=== PATIENT | male | born 1985 | race American Indian/Alaskan Native ===

== ENCOUNTER 2019-05-27 23:37 | Emergency (ER) | payer SELFPAY ==
[2019-05-27 23:53] VITALS: BP 115/78
[2019-05-28] MEDS ORDERED: ULTRAM PO ONE (01:06)
--- NOTE | 2019-05-28 01:19 | Emergency Department Report ---
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 Presents for persistent pain 02/21 since incident. Pt pain making it difficult to walk. There is no swelling , mild bruising no deformity. Pt ambulated into ed with gait disturbance. MD Complaint: leg injury Onset/Timin -: days(s) Injury: Leg: Right (right proxima tib /fib pain) Type of Injury: blunt Place: work Severity: moderate Severity scale (0 -10): 7 Improves With: nothing Worsens With: weight bearing, movement, palpation Context: direct blow Associated Symptoms: ambulatory - Related Data Previous Rx's Medication Instructions Recorded Last Taken Type Menthol/Camphor [[place] 1 applicatio TP QID PRN #1 tube 05/28/19 Unknown Rx Ointment] Naproxen 500 mg PO BID PRN #30 tablet 05/28/19 Unknown Rx Allergies Allergy/AdvReac Type Severity Reaction Status Date / Time No Known Allergies Allergy Verified 05/27/19 23:43 ED Review of Systems ROS: Stated complaint: LEG PAIN Other details as noted in HPI Constitutional: denies: chills, fever Eyes: denies: eye pain, eye discharge, vision change ENT: denies: ear pain, throat pain Respiratory: denies: cough, shortness of breath, wheezing Cardiovascular: denies: chest pain, palpitations Endocrine: no symptoms reported Gastrointestinal: denies: abdominal pain, nausea, diarrhea Genitourinary: denies: urgency, dysuria Musculoskeletal: other (right tib fib pain ). denies: back pain, joint swelling, arthralgia Skin: denies: rash, lesions Neurological: denies: headache, weakness, paresthesias Psychiatric: denies: anxiety, depression Hematological/Lymphatic: denies: easy bleeding, easy bruising ED Past Medical Hx - Past Medical History Previous Medical History?: No - Surgical History Past Surgical History?: No - Social History Smoking Status: Current Every Day Smoker Substance Use Type: None - Medications Home Medications: Home Medications Medication Instructions Recorded Confirmed Last Taken Type Menthol/Camphor [[place] 1 applicatio TP QID PRN #1 tube 05/28/19 Unknown Rx Ointment] Naproxen 500 mg PO BID PRN #30 tablet 05/28/19 Unknown Rx ED Physical Exam - General Limitations: No Limitations General appearance: alert, in no apparent distress - Head Head exam: Present: atraumatic, normocephalic - Eye Eye exam: Present: normal appearance (rate is) - ENT ENT exam: Present: mucous membranes moist - Neck Neck exam: Present: normal inspection, full ROM. Absent: tenderness - Respiratory Respiratory exam: Present: normal lung sounds bilaterally. Absent: respiratory distress, wheezes, stridor - Cardiovascular Cardiovascular Exam: Present: regular rate, normal rhythm, normal heart sounds. Absent: systolic murmur, diastolic murmur, rubs, gallop - GI/Abdominal GI/Abdominal exam: Present: soft, normal bowel sounds. Absent: distended, tenderness, bruit, hernia - Rectal Rectal exam: Present: deferred - Extremities Exam Extremities exam: Present: full ROM, tenderness (right anterior tib fib ), normal capillary refill. Absent: pedal edema, joint swelling, calf tenderness - Expanded Lower Extremity Exam Right Lower Leg exam: Present: full ROM, tenderness, abrasion. Absent: swelling, laceration, ecchymosis, deformity, crepidus, dislocation, erythema, palpable cord, Maria Guadalupe's sign Ankle exam: Present: normal inspection, full ROM. Absent: tenderness, swelling Foot/Toe exam: Present: normal inspection, full ROM. Absent: tenderness, swelling Neuro vascular tendon exam: Absent: pulse deficit, motor deficit, sensory deficit, tendon deficit Gait: Positive: observed and limited by pain - Back Exam Back exam: Present: normal inspection, full ROM. Absent: tenderness, CVA tenderness (R), CVA tenderness (L), rash noted - Neurological Exam Neurological exam: Present: alert, oriented X3, CN II-XII intact, normal gait, reflexes normal. Absent: motor sensory deficit - Psychiatric Psychiatric exam: Present: normal affect, normal mood - Skin Skin exam: Present: warm, dry, intact, normal color. Absent: rash ED Course Vital Signs 05/27/19 05/28/19 23:44 01:43 Temperature 98.1 F Pulse Rate 81 Respiratory 16 Rate Blood Pressure 115/78 O2 Sat by Pulse 98 Oximetry ED Lower Extremity MDM - Radiology Data Radiology results: report reviewed, image reviewed Findings [facility] [address] [place] [address] XRay Report Signed Patient: DAVID MCCARTHY MR#: [id number] : 1985 Acct:[id number] Age/Sex: 33 / M ADM Date: 05/27/19 Loc: ED Attending Dr: Ordering Physician: CORTNEY BOOTHE NP Date of Service: 05/28/19 Procedure(s): XR tibia fibula 2V RT Accession Number(s): [id number] cc: CORTNEY BOOTHE NP Fluoro Time In Minutes: RIGHT TIB-FIB, AP AND LATERAL VIEWS 05/28/2019 INDICATION / CLINICAL INFORMATION: tib pain s/p direct blow with hammer. COMPARISON: None available. FINDINGS: No fracture is identified. No soft tissue abnormalities. Small ossicle is demonstrated lateral to the fibular head. IMPRESSION: No significant abnormalities. Signer Name: Colby Frazier MD Signed: 05/28/2019 1:32 AM Workstation Name: [id number] Transcribed By: KEIRY Dictated By: Colby Frazier MD Electronically Authenticated By: Colby Frazier MD Signed Date/Time: 05/28/19131 DD/ 9 TD/TT: - Medical Decision Making Xray: Tib Fib small ossicle no fracture no soft tissue abnormality. plan, NSAID , Analgesic Aurora follow up with orthpedics, return to ed if symptoms worsen. pt verbalized agreement and understanding of same. Critical care attestation.: If time is entered above; I have spent that time in minutes in the direct care of this critically ill patient, excluding procedure time. ED Disposition Clinical Impression: Leg strain, Contusion of bone Disposition: DC-01 TO HOME OR SELFCARE Is pt being admited?: No Does the pt Need Aspirin: No Condition: Stable Instructions: Contusion in Adults (ED), Musculoskeletal Pain (ED) Prescriptions: Naproxen 500 mg PO BID PRN #30 tablet PRN Reason: Pain Menthol/Camphor [Lorena Aurora Ointment] 1 applicatio TP QID PRN #1 tube PRN Reason: pain Referrals: SANYA LAGUNAS MD [Staff Physician] - 3-5 Days [facility] [Outside] - 3-5 Days Forms: Work/School Release Form(ED) Time of Disposition: 02:03
--- NOTE | 2019-05-28 01:36 | XRay Report ---
RIGHT TIB-FIB, AP AND LATERAL VIEWS 05/28/2019 INDICATION / CLINICAL INFORMATION: tib pain s/p direct blow with hammer. COMPARISON: None available. FINDINGS: No fracture is identified. No soft tissue abnormalities. Small ossicle is demonstrated lateral to the fibular head. IMPRESSION: No significant abnormalities. Signer Name: Colby Frazier MD Signed: 05/28/2019 1:32 AM Workstation Name: [id number]
== END 2019-05-28 02:30 | disposition home or self-care (01) ==
LOC: ED 23:37
DX: S86.911A Strain of unspecified muscle(s) and tendon(s) at lower leg level, right leg, initial encounter (principal); F17.200 Nicotine dependence, unspecified, uncomplicated; Z79.899 Other long term (current) drug therapy; W22.8XXA Striking against or struck by other objects, initial encounter; Y93.89 Activity, other specified; Y92.89 Other specified places as the place of occurrence of the external cause; Y99.8 Other external cause status

== ENCOUNTER 2019-11-12 10:35 | Emergency (ER) | payer SELFPAY ==
[2019-11-12 11:21] VITALS: BP 128/95
--- NOTE | 2019-11-12 12:08 | Event Note ---
ED Screening Note Date of service: 11/12/19 Time: 12:04 ED Screening Note: This initial assessment/diagnostic orders/clinical plan/treatment(s) is/are subject to change based on patients health status, clinical progression and re- assessment by fellow clinical providers in the ED. Further treatment and workup at subsequent clinical providers discretion. Patient/guardian urged not to elope from the ED as their condition may be serious if not clinically assessed and managed. Initial orders include: 34yo M states that he has a painful dry cough x 2 weeks; reports 3-4 cigars a day x 4 yrs. He states that he was given a Z-pack, Flonase, medrol and Tessalon perles but his symptoms are still present.
--- NOTE | 2019-11-12 12:44 | XRay Report ---
CHEST 2 VIEWS, 11/12/2019 12:35 PM INDICATION: Chest pain. Shortness of breath. COMPARISON: None FINDINGS: Support devices: None Heart: The cardiac silhouette is normal in size. Lungs/pleura: The lungs are well expanded and appear clear of focal airspace disease or significant p leural effusion. Additional findings: No significant acute abnormality. IMPRESSION: 1. No evidence of acute cardiopulmonary process. Signer Name: Liz Nelson MD Signed: 11/12/2019 12:40 PM Workstation Name: [id number]
[2019-11-12 13:45] LABS: Basophils % (Auto) 0.3 % (0.0-1.8); Eosinophils # (Auto) 0.1 K/mm3 (0.0-0.4); Eosinophils % (Auto) 2.1 % (0.0-4.3); Hematocrit 45.2 % (35.5-45.6); Hemoglobin 15.1 gm/dl (11.8-15.2); Lymphocytes # (Auto) 1.9 K/mm3 (1.2-5.4); Lymphocytes % (Auto) 46.4 % (13.4-35.0); Mean Corpuscular HGB Conc 34 % (32-34); Mean Corpuscular Volume 92 fl (84-94); Monocytes # (Auto) 0.2 K/mm3 (0.0-0.8); Monocytes % (Auto) 5.6 % (0.0-7.3); Platelet Count 154 K/mm3 (140-440); Red Blood Count 4.94 M/mm3 (3.65-5.03); Red Cell Distribution Width 14.3 % (13.2-15.2)
[2019-11-12 14:20] LABS: Alanine Aminotransferase 11 units/L (7-56); Albumin 4.1 g/dL (3.9-5); BUN/Creatinine Ratio 10; Blood Urea Nitrogen 10 mg/dL (9-20); Hemolysis Index 12
--- NOTE | 2019-11-12 16:37 | Emergency Department Report ---
Minor Respiratory - HPI Chief Complaint: Upper Respiratory Infection Stated Complaint: LOWER BACK PAIN/BRONCITIS Time Seen by Provider: 11/12/19 12:03 Minor Respiratory: Yes Cough, Yes Sick Contacts (work), No Rhinorrhea, No Sore Throat, No Able to Tolerate Fluids, No Ear Pain, No Hemoptysis, No Chest Pain, No Shortness of Breath, No Fever Other History: This is a 34-year-old male presents the ED complaining of upper respiratory infection symptoms is been going on for the past 2 weeks. Patient states that it is not really getting better because he went to work after a week. 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 Patient also states that he started having back pain the past week. Patient states pain is localized to his lower back region. Patient denies any injuries or trauma. Patient also states that coughing is intermittent throughout the day. Patient does state that he has been lifting some heavy material on the wheelbarrow and this tends to worsen his back pain. He denies dysuria, fever, chills, nausea vomiting or diarrhea ED Review of Systems ROS: Stated complaint: LOWER BACK PAIN/BRONCITIS Other details as noted in HPI Comment: All other systems reviewed and negative ED Past Medical Hx - Past Medical History Previous Medical History?: No - Surgical History Past Surgical History?: No - Social History Smoking Status: Current Every Day Smoker Substance Use Type: None - Medications Home Medications: Home Medications Medication Instructions Recorded Confirmed Last Taken Type Menthol/Camphor [[place] 1 applicatio TP QID PRN #1 tube 05/28/19 Unknown Rx Ointment] Naproxen 500 mg PO BID PRN #30 tablet 05/28/19 Unknown Rx Cyclobenzaprine [Flexeril] 10 mg PO QHS PRN #20 tablet 11/12/19 Unknown Rx Minor Respiratory Exam - Exam General: Vital signs noted. No distress. Alert and acting appropriately. HEENT: Yes Moist Mucous Membranes, No Pharyngeal Erythema, No Pharyngeal Exudates, No Rhinorrhea, No Conjuctival Injection, No Frontal Tenderness, No Maxillary Tenderness Ear: Neither TM Bulge, Neither TM Erythema, Neither EAC Pain, Neither EAC Discharge Neck: Yes Supple, No Adenopathy Lungs: Yes Good Air Exchange, No Wheezes, No Ronchi, No Stridor, No Cough, No Labored Respirations, No Retractions, No Use of Accessory Muscles, No Other Abnormal Lung Sounds Heart: Yes Regular, No Murmur Abdomen: Yes Normal Bowel Sounds, No Tenderness, No Peritoneal Signs Skin: No Rash, No Edema Neurologic: Alert and oriented, no deficits. Musculoskeletal: BACK: Full range of motion, no spinal tenderness, tender to palpation of the latissimus dorsi muscles bilaterally. EXTREMITIES/MUSCULOSKELETAL: No cyanosis, clubbing, rash, lesions or edema. Full ROM bilaterally. UE/LE Pulses 2+ bilaterally. LE and UE 5+ strength bilaterally, straight leg raise negative bilaterally NEUROLOGIC: The patient is cooperative with no focal neurologic deficits. Cr anial nerves II through XII are grossly intact. ED Course Vital Signs 11/12/19 11:20 Temperature 98.1 F Pulse Rate 65 Respiratory 18 Rate Blood Pressure 128/95 O2 Sat by Pulse 100 Oximetry ED Medical Decision Making - Lab Data Result diagrams: 11/12/19 12:40 11/12/19 12:40 - Radiology Data Radiology results: report reviewed, image reviewed Fluoro Time In Minutes: CHEST 2 VIEWS, 11/12/2019 12:35 PM INDICATION: Chest pain. Shortness of breath. COMPARISON: None FINDINGS: Support devices: None Heart: The cardiac silhouette is normal in size. Lungs/pleura: The lungs are well expanded and appear clear of focal airspace disease or significant pleural effusion. Additional findings: No significant acute abnormality. IMPRESSION: 1. No evidence of acute cardiopulmonary process. Signer Name: Liz Nelson MD Signed: 11/12/2019 12:40 PM Workstation Name: [id number] Transcribed By: EB Dictated By: Liz Nelson MD Electronically Authenticated By: Liz Nelson MD Signed Date/Time: 11/12/19 1240 - Medical Decision Making 34-year-old female presents to ED with lower back pain most likely secondary to muscle strain as well as bronchitis ED course: Patient received T chest x-rays and labs in the ED which were all normal. Vital signs are normal patient is in no acute distress Discussed with patient follow-up with primary care physician. Patient notes that he works around a lot of people and is unsure if he has been exposed to the cold virus. Patient states that coughing has been going on with no relief. Discussed the patient and take medications as prescribed. Patient has no neurological deficit. Patient is alert and oriented 3 and understands all instructions given. Discussed drowsiness effect of Flexeril makes her drowsy and not to operate machinery while taking flexeril Critical care attestation.: If time is entered above; I have spent that time in minutes in the direct care of this critically ill patient, excluding procedure time. ED Disposition Clinical Impression: Bronchitis, Upper respiratory infection, Strain of muscle, fascia and tendon of lower back, initial encounter Disposition: TO HOME OR SELFCARE Is pt being admited?: No Does the pt Need Aspirin: No Condition: Stable Instructions: Muscle Strain (ED), Chronic Bronchitis (ED) Additional Instructions: Make sure to follow up with the primary care physician as discussed. Take all your medications as you've been prescribed. If you have any worsening symptoms or develop new symptoms please return to ED immediately. Prescriptions: Cyclobenzaprine [Flexeril] 10 mg PO QHS PRN #20 tablet PRN Reason: Muscle Spasm Referrals: PRIMARY CARE, [Primary Care Provider] - 3-5 Days Forms: Work/School Release Form(ED) Time of Disposition: 17:25
== END 2019-11-12 17:43 | disposition home or self-care (01) ==
LOC: ED 10:35
DX: S39.012A Strain of muscle, fascia and tendon of lower back, initial encounter (principal); J06.9 Acute upper respiratory infection, unspecified; J40 Bronchitis, not specified as acute or chronic; F17.200 Nicotine dependence, unspecified, uncomplicated; Z79.899 Other long term (current) drug therapy; X58.XXXA Exposure to other specified factors, initial encounter; Y93.89 Activity, other specified; Y92.89 Other specified places as the place of occurrence of the external cause; Y99.8 Other external cause status
CPT/HCPCS: 36415; 71046; 80053; 85025

== ENCOUNTER 2019-12-20 11:47 | Emergency (ER) | payer SELFPAY ==
--- NOTE | 2019-12-20 14:03 | Emergency Department Report ---
Chief Complaint: Extremity Injury, Lower Stated Complaint: BACK & KNEE PAIN Time Seen by Provider: 12/20/19 13:44 - HPI History of Present Illness: This is a 34-year-old male who presents to the ED complaining of lower back pain and right knee pain that has been going on for over a year. Patient states that he has been to see an orthopedic about his knee and orthopedic suggested an MRI. Patient states that his work involves bending crawling and lifting which is tammy ing his symptoms worse. Patient states he was on his way to work today when he is right knee popped out of place and popped back in while he was doing nothing. Patient denies any recent injuries, chest pain, abdominal pain, urinary symptoms, fever, swelling to any joints. - ROS Review of Systems: As noted in HPI. - Exam Vital Signs: Vital Signs 12/20/19 12:10 Temperature 98.4 F Pulse Rate 77 Respiratory 18 Rate Blood Pressure 115/78 O2 Sat by Pulse 100 Oximetry Physical Exam: GENERAL: Alert and oriented x3, no apparent distress, Normal Gait, atraumatic. HEAD: Head is normocephalic and a-traumatic. BACK: Full range of motion, no spinal tenderness, nontender to palpation. No CVA tenderness bilaterally EXTREMITIES/MUSCULOSKELETAL: No cyanosis, clubbing, rash, lesions or edema of the knee joint bilaterally. Full ROM bilaterally. UE/LE Pulses 2+ bilaterally. LE and UE 5+ strength bilaterally. NEUROLOGIC: The patient is cooperative with no focal neurologic deficits. Normal speech. Normal sensation in bilateral upper and lower extremities, No loss of sensation, No facial droop, Negative rhomberg. SKIN: Warm and dry, No lesions, No ulceration or induration present. MSE screening note: Focused history and physical exam performed. Due to findings the following was ordered: ED Medical Decision Making - Medical Decision Making 34-year-old male presented with Acute on chronic back and knee pain. Discussed with patient need to follow-up with orthopedic doctor as well as neurologist. Patient is able to ambulate without any problems. Patient has no physical signs of any injuries or trauma. Neurologist referrals given. Orthopedic referrals given. All vital signs within normal limits. Patient understands to follow-up with her neurologist and orthopedic as discussed. ED Disposition for MSE Clinical Impression: Lumbar radiculopathy, Right medial knee pain Disposition: MED SCREENING EXAM-LEFT Is pt being admited?: No Does the pt Need Aspirin: No Condition: Stable Instructions: Arthralgia (ED), Lumbar Radiculopathy (ED) Additional Instructions: Make sure to follow up with the primary care physician/ Neurologist/Orthopedic as discussed. Take all your medications as you've been prescribed. If you have any worsening symptoms or develop new symptoms please return to ED immediately. Prescriptions: Cyclobenzaprine [Flexeril 10 MG TAB] 10 mg PO QHS PRN #20 tablet PRN Reason: Muscle Spasm Referrals: PRIMARY CARE, [Primary Care Provider] - 3-5 Days HORACIO HUMMEL MD [Staff Physician] - 3-5 Days [facility] [Provider Group] - 3-5 Days [facility] [Provider Group] - 3-5 Days [facility] [Outside] - 3-5 Days [facility] [Outside] - 3-5 Days Forms: Work/School Release Form(ED) Time of Disposition: 14:12
[2019-12-20 14:28] VITALS: BP 154/88
== END 2019-12-20 14:27 | disposition left against medical advice (07) ==
LOC: ED 11:47
DX: M54.16 Radiculopathy, lumbar region (principal); M25.561 Pain in right knee
CPT/HCPCS: 99282

== ENCOUNTER 2020-10-09 08:16 | Emergency (ER) | payer SELFPAY ==
--- NOTE | 2020-10-09 08:51 | Emergency Department Report ---
ED Back Pain/Injury HPI - General Chief Complaint: Back Pain/Injury Stated Complaint: PAIN IN BACK X WEEK/LEG PAIN Time Seen by Provider: 10/09/20 08:44 Source: patient Limitations: No Limitations - History of Present Illness Complaint: back pain -: Gradual, year(s) (Chronic for over a year), unknown (Chronic for over a year) Similar Symptoms Previously: Yes Place: home Radiation: none Severity: mild, moderate Quality: dull Consistency: constant Improves With: none Worsens With: none Associated Symptoms: denies: confusion, weakness, numbness, difficulty walking, incontinence, constipation, headaches, rash, seizure, syncope - Related Data Previous Rx's Medication Instructions Recorded Last Taken Type Menthol/Camphor [[place] 1 applicatio TP QID PRN #1 tube 05/28/19 Unknown Rx Ointment] Naproxen 500 mg PO BID PRN #30 tablet 05/28/19 Unknown Rx Cyclobenzaprine [Flexeril 10 MG 10 mg PO QHS PRN #20 tablet 12/20/19 Unknown Rx TAB] Diclofenac Dr [Voltaren Dr] 50 mg PO BID #30 tablet 12/20/19 Unknown Rx Ketorolac [Toradol] 10 mg PO Q6H PRN #15 tablet 10/09/20 Unknown Rx methOCARBAMOL [Robaxin] 750 mg PO Q8H PRN #21 tablet 10/09/20 Unknown Rx traMADoL [Ultram] 50 mg PO Q6HR PRN #14 tablet 10/09/20 Unknown Rx Allergies Allergy/AdvReac Type Severity Reaction Status Date / Time No Known Allergies Allergy Verified 10/09/20 08:24 ED Review of Systems ROS: Stated complaint: PAIN IN BACK X WEEK/LEG PAIN Other details as noted in HPI Comment: All other systems reviewed and negative ED Past Medical Hx - Past Medical History Previous Medical History?: No - Surgical History Past Surgical History?: No - Social History Smoking Status: Current Every Day Smoker Substance Use Type: Alcohol, Marijuana - Medications Home Medications: Home Medications Medication Instructions Recorded Confirmed Last Taken Type Menthol/Camphor [[place] 1 applicatio TP QID PRN #1 tube 05/28/19 Unknown Rx Ointment] Naproxen 500 mg PO BID PRN #30 tablet 05/28/19 Unknown Rx Cyclobenzaprine [Flexeril 10 MG 10 mg PO QHS PRN #20 tablet 12/20/19 Unknown Rx TAB] Diclofenac Dr [Voltaren Dr] 50 mg PO BID #30 tablet 12/20/19 Unknown Rx Ketorolac [Toradol] 10 mg PO Q6H PRN #15 tablet 10/09/20 Unknown Rx methOCARBAMOL [Robaxin] 750 mg PO Q8H PRN #21 tablet 10/09/20 Unknown Rx traMADoL [Ultram] 50 mg PO Q6HR PRN #14 tablet 10/09/20 Unknown Rx ED Physical Exam - General Limitations: No Limitations General appearance: alert, in no apparent distress - Head Head exam: Present: atraumatic, normocephalic - Eye Eye exam: Present: normal appearance - ENT ENT exam: Present: mucous membranes moist - Neck Neck exam: Present: normal inspection, full ROM - Respiratory Respiratory exam: Present: normal lung sounds bilaterally. Absent: respiratory distress, wheezes - Cardiovascular Cardiovascular Exam: Present: regular rate, normal rhythm. Absent: systolic murmur, diastolic murmur, rubs, gallop - GI/Abdominal GI/Abdominal exam: Present: soft, normal bowel sounds - Rectal Rectal exam: Present: deferred - Extremities Exam Extremities exam: Present: normal inspection - Back Exam Back exam: Present: normal inspection, paraspinal tenderness, vertebral tenderness. Absent: CVA tenderness (R), CVA tenderness (L) - Neurological Exam Neurological exam: Present: alert, oriented X3, CN II-XII intact - Psychiatric Psychiatric exam: Present: normal affect, normal mood - Skin Skin exam: Present: warm, dry, intact, normal color. Absent: rash ED Course Vital Signs 10/09/20 08:25 Temperature 97.9 F Pulse Rate 72 Respiratory 20 Rate O2 Sat by Pulse 99 Oximetry ED Medical Decision Making - Medical Decision Making Pt presents the emergency department complaining of back pain most consistent with chronic back pain/lumbago back Pain Most Consistent with Strain/Contusion. Differential Diagnosis Includes Lumbar Go Versus Musculoskeletal Spasm, Strain Versus Sciatica. No Back Pain Red Flags on History or Physical. Presentation Not Consistent with Malignancy, Fracture, Cauda Equina, Abdominal Aortic Aneurysm, Viscus Perforation, Pulmonary Embolism, Renal Colic, Pyelonephritis. Patient reports no B symptoms, trauma trauma, incontinence, saddle anesthesia, distal weakness, urinary symptoms and is a febrile. Critical care attestation.: If time is entered above; I have spent that time in minutes in the direct care of this critically ill patient, excluding procedure time. ED Disposition Clinical Impression: Chronic back pain Disposition: TO HOME OR SELFCARE Is pt being admited?: No Does the pt Need Aspirin: No Condition: Stable Instructions: Chronic Pain, Adult, Chronic Back Pain Prescriptions: methOCARBAMOL [Robaxin] 750 mg PO Q8H PRN #21 tablet PRN Reason: Spasms Ketorolac [Toradol] 10 mg PO Q6H PRN #15 tablet PRN Reason: Pain traMADoL [Ultram] 50 mg PO Q6HR PRN #14 tablet PRN Reason: Pain Referrals: SANYA LAGUNAS MD [Staff Physician] - 3-5 Days
== END 2020-10-09 09:43 | disposition home or self-care (01) ==
LOC: ED 08:16
DX: M54.9 Dorsalgia, unspecified (principal); G89.29 Other chronic pain; F17.200 Nicotine dependence, unspecified, uncomplicated; F12.10 Cannabis abuse, uncomplicated; Z79.899 Other long term (current) drug therapy
CPT/HCPCS: 99282